=== PATIENT | male | born 1965 | race American Indian/Alaskan Native ===

== ENCOUNTER 2020-07-13 21:53 | Emergency (ER) | payer BC ==
--- NOTE | 2020-07-14 00:16 | XRay Report ---
LEFT FOOT 3 VIEWS INDICATION / CLINICAL INFORMATION: Injury with left great toe swelling and bruising. COMPARISON: None available. FINDINGS: BONES / JOINT(S): There is an acute, mildly displaced, comminuted fracture of the proximal phalanx of the great toe involving the majority of the diaphysis. No definite intra-articular extension is seen . There are mild degenerative changes involving the first metatarsophalangeal joint. The medial sesam oid bone underlying the first metatarsal head is bipartite. SOFT TISSUES: There is mild associated soft tissue swelling. ADDITIONAL FINDINGS: None. IMPRESSION: Acute, comminuted fracture of the proximal phalanx of the left great toe. Signer Name: Helder Finn MD Signed: 07/14/2020 12:12 AM Workstation Name: [id number]
[2020-07-14 00:42] VITALS: BP 170/110
--- NOTE | 2020-07-14 00:46 | Emergency Department Report ---
ED Lower Extremity HPI - General Chief Complaint: Extremity Injury, Lower Stated Complaint: LT FOOT SWOLLEN Time Seen by Provider: 07/13/20 23:34 Source: patient Mode of arrival: Ambulatory Limitations: No Limitations - History of Present Illness Initial Comments: pt is a 54 yo male who presents to the ED with c/o a left big toe injury that occurred earlier today. he states he was running to the bathroom while barefoot and hit his left big toe against the wall and felt it bend back. he has associated pain, swelling, and bruising. he has been ambulatory. he denies any numbness or weakness. he states he does have a hx of gout and hypertension but is not on any medications. he states he has been controlling his BP with his diet. no allergies to meds. - Related Data Previous Rx's Medication Instructions Recorded Last Taken Type Cyclobenzaprine [Flexeril 10 MG 10 mg PO TID PRN #15 tablet 11/02/14 Unknown Rx TAB] traMADoL [Ultram 50 MG tab] 50 mg PO Q4HR PRN #20 tablet 11/02/14 Unknown Rx Naproxen 500 mg PO BID PRN #14 tablet 07/14/20 Unknown Rx Allergies Allergy/AdvReac Type Severity Reaction Status Date / Time No Known Allergies Allergy Verified 11/02/14 01:51 ED Review of Systems ROS: Stated complaint: LT FOOT SWOLLEN Other details as noted in HPI Comment: All other systems reviewed and negative ED Past Medical Hx - Past Medical History Previous Medical History?: No - Surgical History Past Surgical History?: No - Social History Smoking Status: Never Smoker - Medications Home Medications: Home Medications Medication Instructions Recorded Confirmed Last Taken Type Cyclobenzaprine [Flexeril 10 MG 10 mg PO TID PRN #15 tablet 11/02/14 Unknown Rx TAB] traMADoL [Ultram 50 MG tab] 50 mg PO Q4HR PRN #20 tablet 11/02/14 Unknown Rx Naproxen 500 mg PO BID PRN #14 tablet 07/14/20 Unknown Rx ED Physical Exam - General Limitations: No Limitations General appearance: alert, in no apparent distress - Head Head exam: Present: atraumatic, normocephalic - Eye Eye exam: Present: normal appearance - ENT ENT exam: Present: mucous membranes moist - Extremities Exam Extremities exam: Present: other (ttp to the left great toe, mild edema, there is ecchymosis present, no ttp of the foot, ankle, or knee, FROM of the LLE, neurovascularly intact) - Neurological Exam Neurological exam: Present: alert, oriented X3 - Psychiatric Psychiatric exam: Present: normal affect, normal mood - Skin Skin exam: Present: warm, dry, intact ED Course Vital Signs 07/13/20 07/13/20 23:33 23:39 Temperature 98.1 F Pulse Rate 50 L Respiratory 16 Rate Blood Pressure 170/110 Blood Pressure 157/94 [Left] O2 Sat by Pulse 100 Oximetry ED Lower Extremity MDM - Radiology Data Radiology results: report reviewed, image reviewed Ordering Physician: SHARYN BRODERICK Date of Service: 07/13/20 Procedure(s): XR foot 3+V LT Accession Number(s): [id number] cc: SHARYN BRODERICK Fluoro Time In Minutes: LEFT FOOT 3 VIEWS INDICATION / CLINICAL INFORMATION: Injury with left great toe swelling and bruising. COMPARISON: None available. FINDINGS: BONES / JOINT(S): There is an acute, mildly displaced, comminuted fracture of the proximal phalanx of the great toe involving the majority of the diaphysis. No definite intra- articular extension is seen. There are mild degenerative changes involving the first metatarsophalangeal joint. The medial sesamoid bone underlying the first metatarsal head is bipartite. SOFT TISSUES: There is mild associated soft tissue swelling. ADDITIONAL FINDINGS: None. IMPRESSION: Acute, comminuted fracture of the proximal phalanx of the left great toe. Signer Name: Helder Finn MD Signed: 07/14/2020 12:12 AM Workstation Name: [id number] Transcribed By: RT Dictated By: Helder Finn MD Electronically Authenticated By: Helder Finn MD Signed Date/Time: 07/14/2011 DD/ TD/TT: - Medical Decision Making pt is a 54 yo male who presents to the ED with c/o a left big toe injury that occurred earlier today. he states he was running to the bathroom while barefoot and hit his left big toe against the wall and felt it bend back. he has associated pain, swelling, and bruising. he has been ambulatory. he denies any numbness or weakness. he states he does have a hx of gout and hypertension but is not on any medications. he states he has been controlling his BP with his diet. no allergies to meds. Initial vitals with elevated blood pressure which improved upon repeat. On exam: ttp to the left great toe, mild edema, there is ecchymosis present, no ttp of the foot, ankle, or knee, FROM of the LLE, neurovascularly intact. X-ray left foot: IMPRESSION: Acute, comminuted fracture of the proximal phalanx of the left great toe. Discussed all results with patient answered questions. Patient placed in postop shoe and given crutches by nurse. Given prescription of naproxen. Advised patient please take medication as prescribed as needed. may ice for 15 minutes at a time. do not bear weight on the foot. follow up with an orthopedic doctor. follow up with a primary care doctor regarding your blood pressure, eat a low sodium diet. return to the emergency room for any new or worsening symptoms. Critical care attestation.: If time is entered above; I have spent that time in minutes in the direct care of this critically ill patient, excluding procedure time. ED Disposition Clinical Impression: Elevated blood pressure reading Fracture of phalanx of left great toe Qualifiers: Encounter type: initial encounter Fracture type: closed Phalanx: proximal Fracture alignment: nondisplaced Qualified Code(s): S92.415A - Nondisplaced fracture of proximal phalanx of left great toe, initial encounter for closed fracture Disposition: - TO HOME OR SELFCARE Is pt being admited?: No Does the pt Need Aspirin: No Condition: Stable Instructions: Toe Fracture, [id number] Additional Instructions: please take medication as prescribed as needed. may ice for 15 minutes at a time. do not bear weight on the foot. follow up with an orthopedic doctor. follow up with a primary care doctor regarding your blood pressure, eat a low sodium diet. return to the emergency room for any new or worsening symptoms. Prescriptions: Naproxen 500 mg PO BID PRN #14 tablet PRN Reason: pain Referrals: HELDER STEIN MD [Staff Physician] - 2-3 Days [facility] [Provider Group] - 2-3 Days Time of Disposition: 00:45 Print Language: MALAY
== END 2020-07-14 01:05 | disposition home or self-care (01) ==
LOC: ED 21:53
DX: S92.412A Displaced fracture of proximal phalanx of left great toe, initial encounter for closed fracture (principal); Z79.899 Other long term (current) drug therapy; W22.01XA Walked into wall, initial encounter; Y93.89 Activity, other specified; Y92.89 Other specified places as the place of occurrence of the external cause; Y99.8 Other external cause status
CPT/HCPCS: 99283